=== PATIENT | male | born 1965 | race Asian ===

== ENCOUNTER 2022-12-21 14:51 | Emergency (ER) | payer OTHER ==
[~2022-12-21] VITALS: Ht 165.1 cm; Wt 63.6 kg
[~2022-12-21 14:51] MED LIST: 7030E SQ; ASPI-556 PO; BENA1TAB19 PO; LORA10TA7 PO; METF-1185 PO; NPH,100V11 SQ; OMEG-58; OMEP20 PO; PRAV80TA21 PO; PROAIR; [UNRECOGNIZED DRUG - CODE] PO
[2022-12-21] MEDS ORDERED: METOCLOPRAMIDE HCL 5 MG/ML 2 ML VIAL IVP ONE (15:30)
[2022-12-21] MEDS ORDERED: SODIUM CHLORIDE 0.9% 1,000 ML IV ONE (15:30)
[2022-12-21] MEDS ORDERED: FAMOTIDINE 40 MG in SODIUM CHLORIDE 0.9% 100 ML IV ONE (15:30)
[2022-12-21] MEDS ORDERED: ACET-66 PO (15:40)
[2022-12-21] MEDS ORDERED: SUCR1TAB PO (15:40)
[2022-12-21] MEDS ORDERED: CARV6.2534 PO (15:40)
[2022-12-21] MEDS ORDERED: PANT40TA54 PO (15:40)
[2022-12-21] MEDS ORDERED: LOSA-381 PO (15:40)
[2022-12-21] MEDS ORDERED: BUPR1FIL21 SL (15:40)
[2022-12-21] MEDS ORDERED: QUET50TA24 PO (15:40)
[2022-12-21] MEDS ORDERED: FURO20TA4 PO (15:40)
[2022-12-21] MEDS ORDERED: NICO4GUM35 PO (15:40)
[2022-12-21] MEDS ORDERED: ASPI-1450 PO (15:40)
[2022-12-21] MEDS ORDERED: AMLO10TA55 PO (15:40)
[2022-12-21] MEDS ORDERED: DULA0.75 SQ (15:40)
[2022-12-21] MEDS ORDERED: DICL100G31 TP (15:40)
[2022-12-21] MEDS ORDERED: INSU100I26 SQ (15:40)
[2022-12-21] MEDS ORDERED: PRAS10TA10 PO (15:40)
[2022-12-21] MEDS ORDERED: ATOR-2 PO (15:40)
[2022-12-21 16:15] VITALS: TEMP 98.3
[2022-12-21 16:23] LABS: BASOPHILS % (AUTO) 1.2 % (0.0-2.0); EOSINOPHILS % (AUTO) 2.4 % (1.0-6.0); HEMATOCRIT 36.1 % (41-53); HEMOGLOBIN 11.5 g/dL (13.5-17.5); LYMPHOCYTES # (AUTO) 2.6 K/uL (1.0-4.8); LYMPHOCYTES % (AUTO) 26.1 % (22.0-44.0); MEAN CORPUSCULAR HEMOGLOBIN 26.8 pg (26.0-34.0); MEAN CORPUSCULAR VOLUME 84 fL (80-100); MONOCYTES # (AUTO) 0.7 K/uL (0.1-1.0); MONOCYTES % (AUTO) 7.3 % (2.0-9.0); NEUTROPHILS # (AUTO) 6.2 K/uL (1.8-7.7); PLATELET COUNT (AUTO) 302 K/uL (150-450); RED CELL DISTRIBUTION WIDTH 16.9 % (11.5-14.5)
[2022-12-21 16:50] LABS: CALCIUM, TOTAL 9.7 mg/dL (8.8-10.5); CREATININE 1.29 mg/dL (0.60-1.30); POTASSIUM 3.8 mmol/L (3.5-5.1)
[2022-12-21 16:55] LABS: ALBUMIN 3.5 g/dL (3.4-5.0); BILIRUBIN,TOTAL 1.1 mg/dL (0.1-1.0); TOTAL PROTEIN, SERUM 8.3 g/dL (6.4-8.2)
[2022-12-21 17:37] LABS: APPEARANCE,URINE CLEAR (CLEAR); BILIRUBIN,URINE NEGATIVE (NEGATIVE); GLUCOSE, URINE (UA) NEGATIVE (NEGATIVE); KETONES,URINE TRACE mg/dL (NEGATIVE); LEUKOCYTE ESTERASE ,URINE NEGATIVE (NEGATIVE); NITRATE,URINE NEGATIVE (NEGATIVE); OCCULT BLOOD,URINE NEGATIVE (NEGATIVE); PROTEIN,URINE 30-70 mg/dL (NEGATIVE); SPECIFIC GRAVITIY, URINE 1.011 (1.003-1.030); UROBILINOGEN,URINE <=1.0 mg/dL (<=1.0)
[2022-12-21] MEDS ORDERED: PB/HYOSCY/ATR/SCOP/LIDO/MAALOX 55 ML BOTTLE PO ONE (17:45)
[2022-12-21] MEDS ORDERED: LIDOCAINE 1% 10 ML VIAL SQ ONE (18:45)
[2022-12-21 19:30] VITALS: BP 165/80; PULSE 70; RESP 16
== END 2022-12-21 21:29 | disposition home or self-care (01) ==
LOC: EMS 14:53
DX: R10.13 Epigastric pain (principal); K20.90 Esophagitis, unspecified without bleeding; J45.909 Unspecified asthma, uncomplicated; E11.9 Type 2 diabetes mellitus without complications; E78.00 Pure hypercholesterolemia, unspecified; F41.9 Anxiety disorder, unspecified; I10 Essential (primary) hypertension; F17.210 Nicotine dependence, cigarettes, uncomplicated; Z88.0 Allergy status to penicillin
CPT/HCPCS: 99285; 74176; 96365; 96375; 80053; 81003; 83690; 84484; 85025; 36415; 74022; 93005; J3490; J2765; J7030; J7050